=== PATIENT | male | born 1985 | race African-American/Black ===

== ENCOUNTER 2017-08-15 09:17 | Emergency (ER) | payer SELFPAY ==
--- NOTE | 2017-08-15 09:30 | DR.DIZZY ---
HPI - Time seen Time seen: 09:30 - HPI Comment HPI Comment: WEAK AND DIZZY WHILE WALKING TO WORK. FELT HE COULD PASS OUT. HAD SYNCOPAL EPISODE ONE WEEK AGO. HAVE INDWELLING PACEMAKER. 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 SLIGHT SOB AND CHEST DISCOMFORT WHICH IS RESOLVE CURRENTLY. NO FEVER. - Complaint Chief Complaint Doctor Comments: DIZZINESS AND NEAR SYNCOPAL EPISODE WITH CHEST DISCOMFORT. STARTED WHILE WALKING TO WORK BEFORE COMING TO ED. - Nurses Notes Reviewed Nurses Notes Review: Yes - Source History Provided: Parent - Mode of Arrival Mode of Arrival: Stretcher - Timing Came on: Suddenly - Duration Duration: Constant Duration: Days - Location of Weakness Weakness Location: Generalized - Context Onset: At rest History of: None Stroke Symptoms: None - Severity Severity: Normal activity level - Modifying factors Worsens: Nothing - Associated signs and symptoms Associated Signs and Symptoms: Weak ROS - Review of Systems Constitutional: No Symptoms Reported, Weakness Eyes: No Symptoms Reported ENTM: No Symptoms Reported Respiratoy: No Symptoms Reported Cardiovascular: No Symptoms Reported Gastrointestinal/Abdominal: No Symptoms Reported Genitourinary: No Symptoms Reported Neurological: Weakness, Dizziness Musculoskeletal: No Symptoms Reported Integumentary: No Symptoms Reported Hematologic/Lymphatic: No Symptoms Reported Endocrine: No Symptoms Reported All Other Systems: Reviewed and Negative PE - Vital Signs Vitals: Temperature 98.5 F Pulse Rate [Right Radial] 73 Pulse Rate 77 Respiratory Rate 18 Blood Pressure [Right Arm] 125/62 Blood Pressure 119/63 O2 Sat by Pulse Oximetry 94 - General Limitations: No Limitations General Appearance: Alert - Head Head Exam: Normal Inspection - Eyes Eye exam: Normal Appearance Pupils: Regular, Round: Bilateral Sclera/Conjunctival: Normal Inspection: Bilateral - ENT ENT Exam: Normal External Ear Exam - Neck Neck Exam: Trachea Midline - Chest Chest Inspection: Symmetric Chest Wall Rise - Respiratory Respiratory Exam: Normal Lung Sounds Bilat Respiratory Exam: Bilateral Clear to Auscultation - Cardiovascular Cardiovascular Exam: Regular Rate, Normal Rhythm, Normal Heart Sounds - Abdominal Exam Abdominal Exam: Normal Bowel Sounds, Soft. negative: Tenderness - Rectal Rectal Exam: Deferred - Extremeties Extremities Exam: Normal Inspection - Back Back Exam: Normal Inspection - Neurologic Neurological Exam: Alert, Oriented X3, CN II-XII Intact, Normal Gait, Reflexes Normal. negative: Motor Sensory Deficit Speech: Fluid Speech Cranial Nerve Exam: EOM Function (II, III, IV, ): Normal, Facial Sensation (V) : Normal, Facial Palsy (VII): Normal, Gag reflex (XI): Normal, Spinal Accessory Function (XI): Normal, Tongue Deviation: Normal Motor Strength - LUE: 5/5 Motor Strength - RUE: 5/5 Motor Strength - LLE: 5/5 Motor Strength - RLE: 5/5 Upper Motor Neuron Exam: Babinski Sign: Normal - Psychiatric Psychiatric Exam: Normal Affect, Normal Mood - Skin Skin Exam: Normal Color MDM - Differential Diagnosis Differential Diagnosis: Anemia, CVA, Dehydration, Dysrhythmia, Electrolyte disorder, Hypoglycemia, Labyrinthitis, Myocardial Infarction, Vertigo- central Course - Treatment Treatment: SEE ORDERS - Education/Counseling Education/Counseling: Patient, Education Educated On: Diagnosis, Needs for Follow Up ROR - Labs Reviewed Laboratory Results Reviewed?: Yes Result Diagrams: 08/15/17 10:00 08/15/17 10:00 Laboratory: WBC 5.7 X10^3/uL (3.6-10.0) 08/15/17 10:00 RBC 4.61 X10^6/uL (4.7-6.0) L 08/15/17 10:00 Hgb 14.8 g/dL (13.5-18.0) 08/15/17 10:00 Hct 42.8 % (42.0-54.0) 08/15/17 10:00 MCV 92.9 fL (80.0-100.0) 08/15/17 10:00 MCH 32.1 pg (27.0-34.0) 08/15/17 10:00 MCHC 34.5 g/dL (33.0-35.0) 08/15/17 10:00 RDW 13.8 % (11.6-16.5) 08/15/17 10:00 Plt Count 136 X10^3/uL (150.0-450.0) L 08/15/17 10:00 MPV 9.1 fL (7.4-11.0) 08/15/17 10:00 Neut % (Auto) 71.7 % (42.0-75.0) 08/15/17 10:00 Lymph % (Auto) 17.7 % (21.0-51.0) L 08/15/17 10:00 [place] % (Auto) 8.0 % (0.0-13.0) 08/15/17 10:00 Eos % (Auto) 2.0 % (0.9-2.9) 08/15/17 10:00 Baso % (Auto) 0.6 % (0.2-1.0) 08/15/17 10:00 Neut # (Auto) 4.1 x10^3/uL (2.2-4.8) 08/15/17 10:00 Lymph # (Auto) 1.0 X10^3/uL (1.3-2.9) L 08/15/17 10:00 [place] # (Auto) 0.5 x10^3/uL (0.3-0.8) 08/15/17 10:00 Eos # (Auto) 0.1 x10^3/uL (0.0-0.2) 08/15/17 10:00 Baso # (Auto) 0.0 X10^3/uL (0.0-0.1) 08/15/17 10:00 Absolute Nucleated RBC 0.1 /100WBC 08/15/17 10:00 Sodium 145 mmol/L (136-145) 08/15/17 10:00 Corrected Sodium TNP 08/15/17 10:00 Potassium 3.5 mmol/L (3.5-5.1) 08/15/17 10:00 Chloride 112 mmol/L (98-107) H 08/15/17 10:00 Carbon Dioxide 24.4 mmol/L (21-32) 08/15/17 10:00 BUN 14 mg/dL (7-18) 08/15/17 10:00 Creatinine 0.96 mg/dL (0.70-1.30) 08/15/17 10:00 Est GFR (MDRD) Af Amer > 60 (>60) 08/15/17 10:00 Est GFR (MDRD) Non-Af > 60 (>60) 08/15/17 10:00 Glucose 75 mg/dL (65-99) 08/15/17 10:00 Calcium 7.9 mg/dL (8.5-10.1) L 08/15/17 10:00 Corrected Calcium TNP 08/15/17 10:00 Total Bilirubin 0.80 mg/dL (0.2-1.0) 08/15/17 10:00 AST 29 Units/L (15-37) 08/15/17 10:00 ALT 24 Units/L (12-78) 08/15/17 10:00 Alkaline Phosphatase 61 Units/L (46-116) 08/15/17 10:00 Creatine Kinase 269 Units/L (39-308) 08/15/17 10:00 CK-MB (CK-2) 2.5 ng/mL (0-4.0) 08/15/17 10:00 CK/CKMB % Calc 0.9 % (<4) 08/15/17 10:00 Troponin I < 0.02 ng/mL (0-1.5) 08/15/17 10:00 Total Protein 6.5 g/dL (6.4-8.2) 08/15/17 10:00 Albumin 3.5 g/dL (3.4-5.0) 08/15/17 10:00 Globulin 3.0 g/dL (2.5-4.5) 08/15/17 10:00 Albumin/Globulin Ratio 1.2 Ratio (1.1-2.1) 08/15/17 10:00 Specimen Type Clean catch urine 08/15/17 11:02 Urine Color Yellow (YELLOW) 08/15/17 11:02 Urine Appearance Clear (CLEAR) 08/15/17 11:02 Urine pH 6.5 (5.0 - 8.0) 08/15/17 11:02 Ur Specific [place] 1.015 (1.000-1.030) 08/15/17 11:02 Urine Protein Negative (NEGATIVE) 08/15/17 11:02 Urine Glucose (UA) Negative (NEGATIVE) 08/15/17 11:02 Urine Ketones Negative (NEGATIVE) 08/15/17 11:02 Urine Occult Blood Negative (NEGATIVE) 08/15/17 11:02 Urine Nitrite Negative (NEGATIVE) 08/15/17 11:02 Urine Bilirubin Negative (NEGATIVE) 08/15/17 11:02 Urine Urobilinogen 2+ (NORMAL) 08/15/17 11:02 Ur Leukocyte Esterase 1+ (NEGATIVE) 08/15/17 11:02 Urine RBC None seen /HPF (NONE SEEN) 08/15/17 11:02 Urine WBC 0-2 /HPF (NONE SEEN) 08/15/17 11:02 Ur Squamous Epith Cells Rare /HPF (NEGATIVE) 08/15/17 11:02 Urine Bacteria Negative /HPF (NEGATIVE) 08/15/17 11:02 Ur Culture Indicated? No/not indicated 08/15/17 11:02 Urine Opiates Screen Negative (NEG=<300) 08/15/17 11:02 Urine Methadone Screen Negative (NEG=<300) 08/15/17 11:02 Ur Barbiturates Screen Negative (NEG=<200) 08/15/17 11:02 Ur Phencyclidine Scrn Negative (NEG=<25) 08/15/17 11:02 Ur Amphetamines Screen Negative (NEG=<1000) 08/15/17 11:02 U Benzodiazepines Scrn Negative (NEG=<200) 08/15/17 11:02 Urine Cocaine Screen Negative (NEG=<300) 08/15/17 11:02 U Marijuana (THC) Screen Positive (NEG=<50) A 08/15/17 11:02 - XRAY XRAY Interpreted by: Radiologist XRAY Findings: REPORT DISCUSS WITH PATIENT. - EKG Rhythm: NSR (EKG NOTED.) - Diagnosis Discharge Problem: Generalized weakness, Dizziness Episode of syncope Qualifiers: Syncope type: unspecified Qualified Code(s): R55 - Syncope and collapse - Discharge Plan Disposition: 01 HOME, SELF-CARE Condition: Stable - Follow ups/Referrals Follow ups/Referrals: NFD,None [Primary Care Provider] - 1 day Ramón Dunham [STAFF PHYSICIAN] - 1 day - Instructions Instructions: Weakness, [id number], Dizziness, [id number], Syncope, Easy-to -Read Additional Instructions: RETURN TO ED IF WORSE. FOLLOW UP WITH [facility] GEORGE.
[2017-08-15 09:33] VITALS: BMI 24.3
[2017-08-15 10:07] VITALS: BP 125/62
[2017-08-15 10:09] LABS: BASOPHILS % (AUTO) 0.6 % (0.2-1.0); EOSINOPHILS # (AUTO) 0.1 x10^3/uL (0.0-0.2); HEMATOCRIT 42.8 % (42.0-54.0); HEMOGLOBIN 14.8 g/dL (13.5-18.0); LYMPHOCYTES % (AUTO) 17.7 % (21.0-51.0); MEAN CORPUSCULAR HEMOGLOBIN 32.1 pg (27.0-34.0); MEAN CORPUSCULAR HGB CONC 34.5 g/dL (33.0-35.0); MEAN CORPUSCULAR VOLUME 92.9 fL (80.0-100.0); MEAN PLATELET VOLUME 9.1 fL (7.4-11.0); MONOCYTES # (AUTO) 0.5 x10^3/uL (0.3-0.8); NEUTROPHILS # (AUTO) 4.1 x10^3/uL (2.2-4.8); NEUTROPHILS % (AUTO) 71.7 % (42.0-75.0); PLATELET COUNT 136 X10^3/uL (150.0-450.0); RED BLOOD COUNT 4.61 X10^6/uL (4.7-6.0); RED CELL DISTRIBUTION WIDTH 13.8 % (11.6-16.5); WHITE BLOOD COUNT 5.7 X10^3/uL (3.6-10.0)
--- NOTE | 2017-08-15 10:13 | RAD ---
HISTORY: Chest pain. Weakness. Study: AP portable chest Comparison: None Findings: The lungs are clear. Mild cardiomegaly is noted. The patient is status post median sternotomy. The re is convex left upper and convex right thoracolumbar scoliosis. IMPRESSION: 1. Mild cardiomegaly without evidence of failure. Reported By:
[2017-08-15 10:25] LABS: BLOOD UREA NITROGEN 14 mg/dL (7-18); CALCIUM 7.9 mg/dL (8.5-10.1); CARBON DIOXIDE 24.4 mmol/L (21-32); CHLORIDE 112 mmol/L (98-107); CREATININE 0.96 mg/dL (0.70-1.30); SODIUM 145 mmol/L (136-145); TROPONIN I < 0.02 ng/mL (0-1.5); eGFR BLACK RACES > 60 (>60); eGFR NON BLACK RACES > 60 (>60)
[2017-08-15 10:29] LABS: ALANINE AMINOTRANSFERASE 24 Units/L (12-78); ALBUMIN 3.5 g/dL (3.4-5.0); ALKALINE PHOSPHATASE 61 Units/L (46-116); ASPARTATE AMINO TRANSFERASE 29 Units/L (15-37); CKMB % 0.9 % (<4); CREATINE KINASE 269 Units/L (39-308); CREATINE KINASE MB 2.5 ng/mL (0-4.0); TOTAL PROTEIN 6.5 g/dL (6.4-8.2)
--- NOTE | 2017-08-15 11:02 | CT ---
HISTORY: Dizziness, headache Study: CT head without contrast Comparison: None Technique: Axial noncontrast images with coronal and sagittal reformats. Dose reduction procedures we re used with mA/kv adjusted for body size. Findings: The ventricles are normal in size, shape, and position. There is an area of CSF attenuation in the le ft posterior frontal region which could represent encephalomalacia secondary to an old CVA or an arac hnoid cyst. There are no areas of attenuation to suggest recent CVA, hemorrhage, mass lesion, or extr a-axial fluid collection. Those sinuses visualized were clear. The calvarium is intact. IMPRESSION: No definite acute intracranial abnormality Area of CSF attenuation involving the left posterior frontal region which could represent encephaloma lacia secondary to an old CVA or perhaps a benign arachnoid cyst. Reported By:
[2017-08-15 11:10] LABS: BILIRUBIN,URINE NEGATIVE (NEGATIVE); BLOOD/HEMOGLOBIN,URINE NEGATIVE (NEGATIVE); GLUCOSE, URINE NEGATIVE (NEGATIVE); KETONES,URINE NEGATIVE (NEGATIVE); LEUKOCYTE ESTERASE ,URINE 1+ (NEGATIVE); NITRITES,URINE NEGATIVE (NEGATIVE); PH,URINE 6.5 (5.0 - 8.0); PROTEIN,URINE NEGATIVE (NEGATIVE); UROBILINOGEN,URINE 2+ (NORMAL)
[2017-08-15 11:25] LABS: APPEARANCE,URINE CLEAR (CLEAR); COLOR,URINE YELLOW (YELLOW); RBC,URINE NONE SEEN /HPF (NONE SEEN)
[2017-08-15 11:26] LABS: BACTERIA,URINE NEGATIVE /HPF (NEGATIVE); SQUAMOUS EPITHELIAL CELL,UR RARE /HPF (NEGATIVE)
== END 2017-08-15 11:28 | disposition home or self-care (01) ==
LOC: ER 09:25
DX: R53.1 Weakness (principal); R42 Dizziness and giddiness; R55 Syncope and collapse; R94.31 Abnormal electrocardiogram [ECG] [EKG]; I51.7 Cardiomegaly
CPT/HCPCS: 36415; 70450; 71045; 80053; 80307; 81001; 82550; 82553; 84484; 85025; 93005; 93010; 96365; 99283; G0434

== ENCOUNTER 2017-08-17 02:45 | Emergency (ER) | payer SELFPAY ==
[2017-08-17 02:57] VITALS: BP 120/73; BMI 23.5
[2017-08-17] MEDS ORDERED: VISTARIL PO ONE (03:30)
--- NOTE | 2017-08-17 03:39 | DR.GENAD ---
HPI - PCP Primary Care Physician: NFD - Complaint/Symptoms Chief Complaint Doctors Comments: Patient states he suffers from anxiety and depression and need someone to talk to. States he was just her two days ago with pressure in his chest and they told him he was having a panic attack. States he has had a lot of things going on recently loosing his job and his girl friend getting evicted because he was living with her and she has until to move. states he has been incarcerated for two years and recently discharged few weeks ago. States he has a pacemaker but his battery has been for two years and they were going to fix it when he was in senior living but they decided to let him go and he has no insurance or local doctor. States he lost his job yesterday because he had three strikes against him. States his girl friend father is sick and he has been trying to help with him and their five children. States she has five children and he adopted the youngest one because he does not have a father and the others have a different father. States his mother gave him up when he was [age] and he was raised by his grand parents and his grand father was a dock guard. He just started going to a local chuch but could not get in touch with them tonight. He denies chest pain, SOB, nausea or vomiting presently. States he is not suicidal nor is he thinking about hurting anyone. States he just need someone to talk to because he felt like he may have another panic attack. States his girl friend is 12 years older than him. Chief Complaint:: "MY HEAD WAS SPINNING, I GOT DIZZY, AND THEN I STARTED TO CRY. I THINK I WAS HAVING A ANXIETY ATTACK. I WAS HERE A FEW DAYS AGO, I THOUGHT IT WAS MY HEART BUT I WAS TOLD IT WAS AN ANXIETY ATTACK." WHEN ASKED PATIENT WHO WAS FAMILY DOCTOR , RESPONSE-"NO MA'AM I DON'T HAVE ONE, I DON'T HAVE A FAMILY", WITH TEARS IN PATIENTS EYES. - Source History Provided: Patient - Mode of Arrival Mode of Arrival: Ambulatory - Timing Onset of Chief Complaint: 08/17/17 PMH - PMH Past Medical History: Yes Past Medical History: Anxiety, Depression Past Medical History Comment: BIPOLAR Past Surgical History: Yes Past Surgical History Comment: PACEMAKER FOR IRREGULAR HEART BEAT - Family History History of Family Medical Conditions: No (UNKNOWN-DAD MOM-?) - Social History Type of Tobacco Use: Cigarettes Alcohol Use: Rarely Do you use any recreational Drugs:: Yes (AT TIMES(THC)) Lives With: Alone Lives Where: Home - infectious screening Have you traveled outside the country in the last 6 months?: No Isolation: Standard ROS - Review of Systems Constitutional: No Symptoms Reported Eyes: No Symptoms Reported. negative: See HPI, Eye Pain, Blurred Vision, Tearing, Discharge, Photophobia, Diplopia, Other ENTM: No Symptoms Reported Respiratoy: No Symptoms Reported. negative: See HPI, Productive Cough, Non- Productive Cough, Moist Cough, Dry Cough, Hacking Cough, Barking Cough, Brassy Cough, Orthopnea, Short of Breath, Stridor, Wheezing, Hemoptysis, Other Cardiovascular: No Symptoms Reported Gastrointestinal/Abdominal: No Symptoms Reported Genitourinary: No Symptoms Reported Neurological: Anxiety, Depressed, Emotional Problems Musculoskeletal: No Symptoms Reported Integumentary: No Symptoms Reported Hematologic/Lymphatic: No Symptoms Reported Endocrine: No Symptoms Reported Psychiatric: No Symptoms Reported, Anxiety, Depression, Excessive crying PE - Vital Signs Vitals: Temperature 98.5 F Pulse Rate 78 Respiratory Rate 16 Blood Pressure [Right Arm] 125/62 Blood Pressure 120/73 O2 Sat by Pulse Oximetry 95 - General Limitations: No Limitations General Appearance: Alert, In No Apparent Distress, Other (crying at times) - Head Head Exam: Normal Inspection, Atraumatic, Normocephalic - Eyes Eye exam: Normal Appearance, PERRL, EOMI. negative: Scleral Icterus, Conjunctival Injection, Nystagmus, Miosis, Mydrasis, Periorbital Swelling, Periorbital Tenderness, Other - ENT ENT Exam: Normal Exam, Normal Oropharynx, Normal External Ear Exam, Mucous Membranes Moist, TM's Normal Bilaterally External Ear Exam: Normal External Inspection TM/Canal Exam: Bilateral Normal Nose Exam: Normal Nose Exam Mouth Exam: Normal Inspection Throat Exam: Normal Inspection - Neck Neck Exam: Normal Inspection, Full ROM, Trachea Midline - Chest Chest Inspection: Normal Inspection, Symmetric Chest Wall Rise - Respiratory Respiratory Exam: Normal Lung Sounds Bilat Respiratory Exam: Bilateral Clear to Auscultation - Cardiovascular Cardiovascular Exam: Regular Rate, Normal Rhythm, Normal Heart Sounds (left upper quadrant pacemaker) - Abdominal Exam Abdominal Exam: Normal Inspection, Normal Bowel Sounds, Soft Abdominal Tenderness: negative: RUQ, RLQ, LUQ, LLQ, Epigastrium, Suprapubic, Diffuse, Mild, Moderate, Severe, Other - Extremities Extremities Exam: Normal Inspection, Full ROM, Normal Capillary Refill. negative: Tenderness, Edema, Joint Swelling, Calf Tenderness, Other - Back Back Exam: Normal Inspection, Full ROM. negative: Tenderness, (R) CVA Tenderness, (L) CVA Tenderness, Muscle Spasm, Paraspinal Tenderness, Vertebral Tenderness, Rashes, (R) Sciatic Notch Tenderness, (L) Sciatic Notch Tendern, (R ) Straight Leg Raise, (L) Straight Leg Raise, Other - Neurologic Neurological Exam: Alert, Oriented X3, CN II-XII Intact, Normal Gait, Reflexes Normal - Psychiatric Psychiatric Exam: Normal Affect, Normal Mood, Depressed, Anxious. negative: Agitated, Flat Affect, Manic, Homicidal Ideation, Suicidal Ideation, Other - Skin Skin Exam: Warm, Dry, Intact, Normal Color - Diagnosis Discharge Problem: Anxiety neurosis, Neurosis, depressive - Discharge Plan Disposition: HOME, SELF-CARE Condition: Stable Prescriptions: Hydroxyzine HCl 10 mg Tab [ATARAX *] 10 mg PO TID #30 tab - Follow ups/Referrals Follow ups/Referrals: NFD,None [Primary Care Provider] - 3 days JANNET MARCH [STAFF PHYSICIAN] - 3 days - Instructions Instructions: Living With Depression, Persistent Depressive Disorder, Adult, Panic Attack, [id number]
== END 2017-08-17 03:49 | disposition home or self-care (01) ==
LOC: ER 02:45
DX: F41.1 Generalized anxiety disorder (principal); F34.1 Dysthymic disorder
CPT/HCPCS: 99282; Q0177